=== PATIENT | male | born 1965 | race Caucasian/White ===

== ENCOUNTER 2017-09-29 00:39 | Emergency (ER) | payer OTHER ==
[~2017-09-29] VITALS: Ht 180.3 cm; Wt 90.7 kg
[2017-09-29 01:58] VITALS: BP 136/86
== END 2017-09-29 01:58 | disposition home or self-care (01) ==
LOC: ED 00:39
DX: J45.901 Unspecified asthma with (acute) exacerbation (principal)
CPT/HCPCS: J7613; J7644

== ENCOUNTER 2018-02-26 06:33 | Emergency (ER) | payer OTHER ==
[~2018-02-26] VITALS: Ht 180.3 cm; Wt 98.0 kg
[2018-02-26 06:45] VITALS: Ht 180.3 cm; Wt 98.0 kg
[2018-02-26 08:28] VITALS: BP 125/97
== END 2018-02-26 08:28 | disposition home or self-care (01) ==
LOC: ED 06:33
DX: S93.401A Sprain of unspecified ligament of right ankle, initial encounter (principal); J45.909 Unspecified asthma, uncomplicated; X50.1XXA Overexertion from prolonged static or awkward postures, initial encounter; Y93.89 Activity, other specified; Y92.89 Other specified places as the place of occurrence of the external cause; Y99.8 Other external cause status